=== PATIENT | female | born 1970 | race Caucasian/White ===

== ENCOUNTER 2022-08-26 09:44 | Outpatient (CLI) | payer OTHER, SELFPAY ==
--- NOTE | 2022-08-26 10:15 | CRLHL7_ITS ---
For Patients: As a result of the Century Cures Act, medical imaging exams and procedure reports are released immediately into your electronic medical record. You may view this report before your referring provider. If you have questions, please contact your health care provider. BILATERAL SCREENING MAMMOGRAM WITH COMPUTER-AIDED DETECTION AND TOMOSYNTHESIS TECHNIQUE: CC and MLO views were obtained. These mammographic images have been obtained using full-field digital technique. These mammographic images were interpreted with the benefit of computer-aided detection. Breast Tomosynthesis was used in this interpretation. COMPARISON FILM: 07/10/21, 07/02/20, 05/15/19. FINDINGS: There are scattered areas of fibroglandular density IMPRESSION: There is no radiographic evidence for malignancy. ASSESSMENT: BI-RADS Category 1: Negative RECOMMENDATION: Routine screening mammogram in 1 year. A lay language report of this examination will be provided to the patient. Ariel Bonilla M.D. Diagnostic Radiologist [email or web address] [place]/Dictated by: Ariel Bonilla MD @ 08/26/2022 11:41:00 AM (Electronically Signed)
== END 2022-08-26 09:45 | disposition home or self-care (01) ==
LOC: MAMMO 09:45
PROVIDERS: Visit Provider Physician Assistant Medical
DX: Z12.31 Encounter for screening mammogram for malignant neoplasm of breast (principal)
CPT/HCPCS: 77063; 77067

== ENCOUNTER 2023-11-29 18:04 | Outpatient (CLI) | payer OTHER, SELFPAY ==
--- NOTE | 2023-11-29 18:20 | CRLHL7_ITS ---
For Patients: As a result of the Century Cures Act, medical imaging exams and procedure reports are released immediately into your electronic medical record. You may view this report before your referring provider. If you have questions, please contact your health care provider. BILATERAL DIGITAL SCREENING MAMMOGRAM WITH COMPUTER-AIDED DETECTION AND TOMOSYNTHESIS CLINICAL HISTORY: Routine screening exam. COMPARISON: 08/26/2022, 07/10/2021, 07/02/2020, 05/15/2019. TECHNIQUE: Digital mammogram in CC and MLO projections including computer-aided detection (CAD). Tomosynthesis was used. BREAST COMPOSITION: There are scattered areas of fibroglandular density FINDINGS: RIGHT Breast: No suspicious findings. LEFT Breast: Focal asymmetric density lateral LEFT breast 8 cm from the nipple CC view only. IMPRESSION: LEFT breast asymmetry/mass. RECOMMENDATIONS: Additional mammographic views of the LEFT breast including 3D spot-compression CC and 3D true lateral. LEFT breast ultrasound may also be required. The [facility] will contact the patient for follow-up. BI-RADS Category 0: Incomplete: Need Additional Imaging Evaluation and/or Prior Mammograms for Comparison. A lay language report of this examination will be provided to the patient. Dictated by Ariel Bonilla MD @ 11/30/2023 1:32:19 PM/karina [place]URANG/Dictated by: Ariel Bonilla MD @ 11/30/2023 1:32:00 PM (Electronically Signed)
== END 2023-11-29 18:05 | disposition home or self-care (01) ==
LOC: MAMMO 18:05
PROVIDERS: Visit Provider Physician Assistant
DX: Z12.31 Encounter for screening mammogram for malignant neoplasm of breast (principal); N63.20 Unspecified lump in the left breast, unspecified quadrant
CPT/HCPCS: 77063; 77067

== ENCOUNTER 2023-12-16 07:39 | Outpatient (CLI) | payer OTHER, SELFPAY | END 2023-12-16 07:40 | disposition home or self-care (01) | LOC: NFLDREF 12-19 08:31 | PROVIDERS: PCP Physician Assistant Medical; Visit Provider Physician Assistant Medical | DX: R73.9 Hyperglycemia, unspecified (principal); Z13.220 Encounter for screening for lipoid disorders; Z13.29 Encounter for screening for other suspected endocrine disorder | CPT/HCPCS: 80053; 80061; 84443 ==

== ENCOUNTER 2023-12-16 08:40 | Outpatient (CLI) | payer OTHER, SELFPAY ==
--- NOTE | 2023-12-16 08:45 | CRLHL7_ITS ---
For Patients: As a result of the Cures Act, medical imaging exams and procedure reports are released immediately into your electronic medical record. You may view this report before your referring provider. If you have questions, please contact your health care provider. DIGITAL DIAGNOSTIC LEFT MAMMOGRAM PERFORMED WITH TOMOSYNTHESIS AND COMPUTER-AIDED DETECTION LEFT BREAST ULTRASOUND CLINICAL HISTORY: LEFT breast mass/asymmetry. COMPARISON: 11/29/2023, 08/26/2022, 07/10/2021, 07/02/2020. TECHNIQUE: Digital LEFT mammogram in two projections. Tomosynthesis and CAD utilized. Real-time ultrasound imaging of LEFT breast with imaging documentation. Scanning was performed by both the technologist and the radiologist. BREAST COMPOSITION: There are areas of scattered fibroglandular density. FINDINGS: Additional mammogram images demonstrate decreased conspicuity of previously noted asymmetric density. No architectural distortion or suspicious calcifications. Targeted ultrasound LEFT breast 3 o`clock 8 cm from the nipple performed. Normal fibroglandular tissue. No suspicious findings. IMPRESSION: No evidence of malignancy. RECOMMENDATIONS: Annual BILATERAL screening mammography. Results and recommendations discussed with the patient. BI-RADS Category 2: Benign A lay language report of this examination will be provided to the patient. Dictated by Ariel Bonilla MD @ 12/16/2023 9:45:31 AM jj/Dictated by: Ariel Bonilla MD @ 12/16/2023 9:45:00 AM (Electronically Signed)
--- NOTE | 2023-12-16 09:15 | CRLHL7_ITS ---
For Patients: As a result of the Cures Act, medical imaging exams and procedure reports are released immediately into your electronic medical record. You may view this report before your referring provider. If you have questions, please contact your health care provider. PLEASE SEE DIGITAL DIAGNOSTIC LEFT MAMMOGRAM PERFORMED SAME DAY CRL:[email or web address] lambert/Dictated by: Ariel Bonilla MD @ 12/16/2023 9:45:00 AM (Electronically Signed)
== END 2023-12-16 08:41 | disposition home or self-care (01) ==
LOC: MAMMO 08:41
PROVIDERS: PCP Physician Assistant Medical; Visit Provider Physician Assistant Medical
DX: N63.20 Unspecified lump in the left breast, unspecified quadrant (principal); R92.8 Other abnormal and inconclusive findings on diagnostic imaging of breast
CPT/HCPCS: 76642; 77065; 80053; 80061; 84443; G0279

== ENCOUNTER 2024-01-13 08:26 | Outpatient (CLI) | payer OTHER, SELFPAY ==
--- NOTE | 2024-01-13 09:22 | W.ANESCHARGE ---
Anesthesia Charges Start Date/Time Anesthesia Start Date: 01/13/24 Anesthesia Start Time: 08:50 Stop Date/Time Anesthesia Stop Date: 01/13/24 Anesthesia Stop Time: 09:17
--- NOTE | 2024-01-13 09:37 | W.ANESCHARGE ---
Anesthesia Charges Start Date/Time Anesthesia Start Date: 01/13/24 Anesthesia Start Time: 08:50 Stop Date/Time Anesthesia Stop Date: 01/13/24 Anesthesia Stop Time: 09:17
== END 2024-01-13 08:27 | disposition home or self-care (01) ==
LOC: OP CLINIC 08:27
PROVIDERS: PCP Physician Assistant Medical; Visit Provider Internal Medicine
DX: Z12.11 Encounter for screening for malignant neoplasm of colon (principal); K57.30 Diverticulosis of large intestine without perforation or abscess without bleeding
CPT/HCPCS: 00811; 00812; 45378; J2704

== ENCOUNTER 2024-03-19 08:35 | Outpatient (CLI) | payer OTHER, SELFPAY ==
--- NOTE | 2024-04-17 11:51 | W.PM.SLEEP ---
Sleep Study Details Details Interpreting Provider: Amy Date of Sleep Study: 03/19/24 Sleep Study Details: STUDY TYPE:? Her home unattended ? BMI:? Not recorded ORDERING PROVIDER:Carlene Medellin INDICATION:? Concerned about sleep apnea ? SLEEP SUMMARY:? 428 minutes monitored RESPIRATORY SUMMARY:? AHI 30.7 Low oxygen 81 10.5% of study oxygen less than 90% Snoring 98% PERIODIC LIMB MOVEMENTS OF SLEEP:? Not recorded CARDIAC:? Range 58-104, mean 69.7 IMPRESSION:? Severe obstructive sleep apnea with significant hypo oxygenation RECOMMENDATION: Treatment options include CPAP AutoSet versus dental appliance. CPAP is likely to be more effective.
== END 2024-03-19 08:36 | disposition home or self-care (01) ==
LOC: SLEEP 08:36
PROVIDERS: PCP Physician Assistant Medical; Visit Provider Physician Assistant Medical
DX: G47.33 Obstructive sleep apnea (adult) (pediatric) (principal)
CPT/HCPCS: 95806

== ENCOUNTER 2024-12-05 14:55 | Outpatient (CLI) | payer OTHER, SELFPAY | END 2024-12-05 14:56 | disposition home or self-care (01) | PROVIDERS: PCP Physician Assistant Medical; Visit Provider Physician Assistant Medical | DX: R73.03 Prediabetes (principal); Z13.220 Encounter for screening for lipoid disorders; Z13.29 Encounter for screening for other suspected endocrine disorder | CPT/HCPCS: 80053; 80061; 84443 ==

== ENCOUNTER 2025-06-25 08:29 | Outpatient (CLI) | payer OTHER, SELFPAY ==
--- NOTE | 2025-06-25 08:45 | CRLHL7_ITS ---
For Patients: As a result of the Century Cures Act, medical imaging exams and procedure reports are released immediately into your electronic medical record. You may view this report before your referring provider. If you have questions, please contact your health care provider. INDICATION: BILATERAL SCREENING MAMMOGRAM, ASYMPTOMATIC 55 Y/O FEMALE COMPARISON: 11/29/2023, 08/26/2022, 07/20/2021 TECHNIQUE: Digital mammogram in CC and MLO projections including computer-aided detection (CAD) and tomosynthesis. BREAST COMPOSITION: There are scattered areas of fibroglandular density. FINDINGS: No suspicious findings. ASSESSMENT: BI-RADS 1 Negative RECOMMENDATION: Annual screening mammogram. A lay language report of this examination will be provided to the patient. Dictated by: Ashley Fonseca MD @ 06/25/2025 15:42:29 (Electronically Signed)
== END 2025-06-25 08:30 | disposition home or self-care (01) ==
LOC: MAMMO 08:30
PROVIDERS: PCP Physician Assistant Medical; Visit Provider Physician Assistant Medical
DX: Z12.31 Encounter for screening mammogram for malignant neoplasm of breast (principal)
CPT/HCPCS: 77063; 77067